=== PATIENT | female | born 1975 | race Caucasian/White ===

== ENCOUNTER → 2022-10-05 | Outpatient (CLI) | payer SELFPAY ==
[2022-10-06 18:45] LABS: TB GOLD INTERPRETATION Negative (Negative)
== END ==
LOC: COL.LAB 09:10
PROVIDERS: Family Medicine
DX: Z11.1 Encounter for screening for respiratory tuberculosis (principal); Z11.3 Encounter for screening for infections with a predominantly sexual mode of transmission